=== PATIENT | male | born 1965 | race Caucasian/White ===

== ENCOUNTER 2019-10-06 11:33 | Emergency (ER) | payer BC, OTHER ==
[2019-10-06 11:42] VITALS: BP 126/78; PULSE 90; TEMP 98; BMI 25.0
--- NOTE | 2019-10-06 12:01 | PDOC ---
History of Present Illness - General Chief Complaint: Back Pain Stated Complaint: BACK PAIN Time Seen by Provider: 10/06/19 11:47 History Source: Patient - History of Present Illness Occurred: reports: this morning Pain Location: reports: back Past History - Past Medical History Allergies/Adverse Reactions: Allergies Allergy/AdvReac Type Severity Reaction Status Date / Time No Known Drug Allergies Allergy Verified 10/06/19 11:42 Home Medications: Ambulatory Orders Amlodipine Besylate [Norvasc -] 5 mg PO DAILY 09/17/15 Anemia: No Asthma: No Cancer: No Cardiac Disorders: No CVA: No COPD: No CHF: No Dementia: No Diabetes: No GI Disorders: No Disorders: No HTN: Yes Hypercholesterolemia: Yes Liver Disease: No Seizures: No Thyroid Disease: No - Surgical History Abdominal Surgery: No Appendectomy: No Cardiac Surgery: No Cholecystectomy: No Lung Surgery: No Neurologic Surgery: No Orthopedic Surgery: Yes (HERNIATED DISC) - Psycho Social/Smoking Cessation Hx Smoking History: Former smoker Have you smoked in the past 12 months: No Number of Cigarettes Smoked Daily: 10 Information on smoking cessation initiated: No 'Breaking Loose' booklet given: 07/15/13 Hx Alcohol Use: No Drug/Substance Use Hx: No Substance Use Type: Alcohol Hx Substance Use Treatment: No Review of Systems - Review of Systems Musculoskeletal: Yes: Back Pain Neurological: No: Numbness, Tingling, Weakness *Physical Exam - Vital Signs Last Vital Signs Temp Pulse Resp BP Pulse Ox 98 F 90 18 126/78 99 10/06/19 11:40 10/06/19 11:40 10/06/19 11:40 10/06/19 11:40 10/06/19 11:40 - Physical Exam General Appearance: Yes: Appropriately Dressed. No: Apparent Distress HEENT: positive: Normal Voice Neck: positive: Supple Respiratory/Chest: negative: Respiratory Distress Musculoskeletal: positive: Vertebral Tenderness (to L lower back). negative: CVA Tenderness Integumentary: positive: Dry, Warm Neurologic: positive: Fully Oriented, Alert, Normal Mood/Affect, Motor Strength 5/5 Medical Decision Making - Medical Decision Making 10/06/19 11:59 54-year-old male reports history of herniated disk to LS spine that he had surgery for remotely, here with L lower non-radiating back pain that started while heavy lifting at work today. No acute sensory changes, lower extremity weakness ,bowel or bladder incontinence or saddle anesthesia. Able to ambulate. Did not take anything for pain. see exam M/l back strain No red flags Declined pain meds here Dc w/ OTC meds prn pain Discharge - Discharge Information Problems reviewed: Yes Clinical Impression/Diagnosis: Back strain Qualifiers: Encounter type: initial encounter Qualified Code(s): S39.012A - Strain of muscle, fascia and tendon of lower back, initial encounter Condition: Good Disposition: HOME - Follow up/Referral - Patient Discharge Instructions Patient Printed Discharge Instructions: Low Back Pain - Post Discharge Activity Work/Back to School Note: Back to Work
== END 2019-10-06 12:10 | disposition home or self-care (01) ==
LOC: JERFT 11:33
DX: S39.012A Strain of muscle, fascia and tendon of lower back, initial encounter (principal); X50.9XXA Other and unspecified overexertion or strenuous movements or postures, initial encounter; Y93.89 Activity, other specified; Y92.512 Supermarket, store or market as the place of occurrence of the external cause; Y99.0 Civilian activity done for income or pay; I10 Essential (primary) hypertension; E78.00 Pure hypercholesterolemia, unspecified
CPT/HCPCS: 99282-25

== ENCOUNTER 2019-11-18 05:48 | Day surgery (SDC) | payer OTHER ==
[2019-11-17 11:43] VITALS: BMI 24.3
[2019-11-18] MEDS ORDERED: methylPREDNISolone ACET (DEPO) 80 MG/1 ML VIAL ONE (09:15)
[2019-11-18] MEDS ORDERED: MIDAZOLAM HCL 2 MG/2 ML SINGLE DOSE VIAL ONE ×2 (09:22)
[2019-11-18] MEDS ORDERED: methylPREDNISolone ACET (DEPO) 80 MG/1 ML VIAL IM ONE (09:29)
[2019-11-18] MEDS ORDERED: BUPIVACAINE HCL/PF 0.25% (2.5MG/ML) 10 ML VIAL IJ ONE (09:29)
[2019-11-18 10:18] VITALS: TEMP 98.1
--- NOTE | 2019-11-18 11:30 | OP ---
DATE OF OPERATION: 11/18/2019 PREOPERATIVE DIAGNOSES: 1. Left L4-5 herniated disk with left L4-5 radiculopathy. 2. History of right L5-S1 herniated disk, status post microdiskectomy. ATTENDING SURGEON: Rigo Gilliland MD ANESTHESIA: Local with IV sedation. ELECTRONICS TESTER: Mady Magana CRNA INDICATION: Patient is a 54-year-old male with a history of right L5-S1 laminectomy and diskectomy several years earlier. He developed a new left-sided herniated disk at L4-5. Because of the intractable symptoms and failure of conservative treatment he is here for the 1st epidural steroid injection. Risks of the procedure include but are not limited to bleeding, infection, spinal headache and neurological injury. The patient understands indication for the procedure, procedure in detail, risks and benefits and alternatives for the treatment of his lumbar condition and wished to proceed. No guarantees are given for a favorable outcome. PROCEDURE IN DETAIL: After patient was taken to the operating room he was placed in the prone position with a pillow under his hips. Lumbar region was cleaned with alcohol and prepped with Betadine. Skin wheal raised with 5 mL of 1% Xylocaine. A 22-gauge spinal needle was inserted under AP and lateral fluoroscopic guidance from a left-sided approach to L4-5. [id number] technique was utilized. There was no CSF or blood backflow. Depo-Medrol 80 mg and 1 mL of 0.25% Marcaine was injected. The needle was withdrawn after which a Band-Aid was applied. The patient tolerated the procedure well, was turned back into the supine position, moving his bilateral extremities well. He did not complain of headache. RIGO GILLILAND M.D. [id number]
[2019-11-18 11:50] VITALS: BP 120/80; PULSE 79
[2019-11-18] MEDS ORDERED: ONDANSETRON 4 MG/2 ML VIAL IVPUSH PRN (12:14)
[2019-11-18] MEDS ORDERED: ACETAMINOPHEN 325 MG TABLET (FP) PO PRN (12:14)
[2019-11-18] MEDS ORDERED: oxyCODONE HCL 5 MG TABLET PO PRN (12:14)
[2019-11-18] MEDS ORDERED: LACTATED RINGERS SOLUTION 1,000 ML IV SCH (12:15)
== END 2019-11-18 10:45 | disposition home or self-care (01) ==
LOC: JASU-SURG 05:48
PROVIDERS: ATTEND Neurological Surgery
PROC: 3E0R3BZ Introduction of Anesthetic Agent into Spinal Canal, Percutaneous Approach (ICD-10-PCS; 2019-11-18)
PROC: B01BYZZ Fluoroscopy of Spinal Cord using Other Contrast (ICD-10-PCS; 2019-11-18)
PROC: 3E0R33Z Introduction of Anti-inflammatory into Spinal Canal, Percutaneous Approach (ICD-10-PCS; principal; 2019-11-18 09:21)
DX: M51.16 Intervertebral disc disorders with radiculopathy, lumbar region (principal)
CPT/HCPCS: 76000-TC-FY

== ENCOUNTER 2020-08-17 04:56 | Day surgery (SDC) | payer OTHER ==
[2020-08-01 19:25] VITALS: BMI 24.7
--- OUTSIDE RECORDS SUMMARY | 2020-08-17 04:58 | XMS ---
:1965 Author Organization [facility] Support Name Relationship Address Phone [employer] Unavailable [address] [place] [address] KATHRYN MAURICE [address] [facility] [address] [place] [address] Re-disclosure Warning The records that you are about to access may contain information from federally- assisted alcohol or drug abuse programs. If such information is present, then the following federally mandated warning applies: This information has been disclosed to you from records protected by federal confidentiality rules (42 CFR part 2). The federal rules prohibit you from making any further disclosure of this information unless further disclosure is expressly permitted by the written consent of the person to whom it pertains or as otherwise permitted by 42 CFR part 2. A general authorization for the release of medical or other information is NOT sufficient for this purpose. The Federal rules restrict any use of the information to criminally investigate or prosecute any alcohol or drug abuse patient.The records that you are about to access may contain highly sensitive health information, the redisclosure of which is protected by Article 27-F of the [facility] Public Health law. If you continue you may haveaccess to information: Regarding HIV / AIDS; Provided by facilities licensed or operated by the [facility] Office of Mental Health; or Provided by the [facility] Office for People With Developmental Disabilities. If such information is present, then the following [facility] mandated warning applies: This information has been disclosed to you from confidential records which are protected by state law. State law prohibits you from making any further disclosure of this information without the specific written consent of the person to whom it pertains, or as otherwise permitted by law. Any unauthorized further disclosure in violation of state law may result in a fine or shelter sentence or both. A general authorization for the release of medical or other information is NOT sufficient authorization for further disclosure. Insurance Providers Payer name Policy type Policy ID Covered Covered constitution party's Policy P dimas / Coverage constitution party ID relationship to Yancey Inf ormation type yancey ROSARIO [id number] SP [id number] NATHALY [id number] SP [id number] [employer] [id number] 01 ROSARIO [id number] SP [id number] [id number] BC OUT OF [id number] SP [id number] [facility] PPO [id number] SP [id number] PENDING WC/NF [id number] SP [id number] ONLY SELF PAY SP INSURANCE Results ID Date Data Source [id number] 08/12/2020 03:05:00 PM EDT [facility] Name Value Range Interpretation Description Data Sup porting Code Source(s) Document(s ) SARS [facility] coronavirus 2 RNA This lab was ordered by [facility] and reported by [facility]. ID Date Data Source [id number] 07/28/2020 03:13:00 PM EDT [facility] Name Value Range Interpretation Description Data Sup porting Code Source(s) Document(s ) SARS [facility] coronavirus 2 RNA This lab was ordered by [facility] and reported by [facility]. ID Date Data Source [id number] 02/24/2020 11:50:00 AM EDT [facility] Name Value Range Interpretation Description Data Sup porting Code Source(s) Document(s ) SARS [facility] CORONAVIRUS 2 RNA [facility] and reported by [facility]. Procedure Social History Code Duration Value Status Description Data Source(s ) Smoking Unknown if ever completed Unknown if ever Becky Cabezas smoked [facility]
[2020-08-17 06:26] VITALS: TEMP 98
[2020-08-17] MEDS ORDERED: methylPREDNISolone ACET (DEPO) 80 MG/1 ML VIAL ONE (07:19)
[2020-08-17] MEDS ORDERED: BUPIVACAINE HCL/PF 0.25% (2.5MG/ML) 10 ML VIAL ONE (07:20)
[2020-08-17] MEDS ORDERED: MIDAZOLAM HCL 2 MG/2 ML SINGLE DOSE VIAL ONE (07:46)
[2020-08-17] MEDS ORDERED: PROPOFOL 20 ML ONE (07:46)
[2020-08-17] MEDS ORDERED: methylPREDNISolone ACET (DEPO) 80 MG/1 ML VIAL IM ONE (08:00)
[2020-08-17] MEDS ORDERED: BUPIVACAINE HCL/PF 2.5 MG/ML - 30 ML VIAL IJ ONE (08:00)
[2020-08-17] MEDS ORDERED: LIDOCAINE HCL 1% PRESERVATIVE FREE - 30ML VIAL IJ ONE (08:00)
[2020-08-17 08:24] VITALS: BP 109/71; PULSE 76
--- NOTE | 2020-08-17 11:21 | OP ---
DATE OF OPERATION: 08/17/2020 PREOPERATIVE DIAGNOSIS: Lumbar disk herniation with lower back pain and lumbar radiculopathy. POSTOPERATIVE DIAGNOSIS: Lumbar disk herniation with lower back pain and lumbar radiculopathy. ATTENDING SURGEON: Rigo Gilliland MD PROCEDURE: 1. Left L4-5 epidural steroid injection. 2. Intraoperative fluoroscopy. ANESTHESIA: Local with IV sedation. ANESTHESIOLOGIST: Joleen Mcclain MD INDICATION: Patient is a 55-year-old male who has previously undergone right L5-S1 laminectomy previously with recurrent back pain and left-sided radiculopathy. Because of the intractable symptoms and failure of conservative treatment he is here for the first epidural steroid injection. Risks of procedure include but are not limited to bleeding, infection, spinal headache and neurologic injury. The patient understands the indications for the procedure, procedure in detail, risks and benefits and alternatives for treatment of his lumbar condition and wishes to proceed. No guarantees were given for a favorable outcome PROCEDURE IN DETAIL: After the patient was taken to the operating room, he was placed in the prone position with a pillow under his hips. Lumbar region was cleaned with alcohol and prepared with Betadine. Skin wheal was raised with 5 mL of 1% Xylocaine. A 22-gauge spinal needle was inserted under AP and lateral fluoroscopic guidance from a left-sided approach at L4-5. There was no CSF or blood backflow. Depo-Medrol 80 mg and 1 mL of 0.25% Marcaine were injected. The needle was withdrawn. Sterile bandage was applied. The patient tolerated the procedure well, was turned back to supine position, moving bilateral lower extremities well. He did not complain of headache. RIGO GILLILAND M.D. [id number]
== END 2020-08-17 09:10 | disposition home or self-care (01) ==
LOC: JASU-SURG 04:56
PROVIDERS: ATTEND Neurological Surgery
PROC: 3E0R33Z Introduction of Anti-inflammatory into Spinal Canal, Percutaneous Approach (ICD-10-PCS; 2020-08-17)
PROC: B01BZZZ Fluoroscopy of Spinal Cord (ICD-10-PCS; 2020-08-17)
PROC: 3E0R3BZ Introduction of Anesthetic Agent into Spinal Canal, Percutaneous Approach (ICD-10-PCS; principal; 2020-08-17 07:30)
DX: M51.16 Intervertebral disc disorders with radiculopathy, lumbar region (principal); M54.5 Low back pain
CPT/HCPCS: 76000-TC-FY

== ENCOUNTER 2021-03-01 04:15 | Inpatient (IN) | payer BC ==
[2021-02-27 11:18] VITALS: BMI 24.1
[2021-03-01] MEDS ORDERED: THROMBIN (BOVINE) 5,000 UNIT VIAL TP ONE ×3 (07:49→11:40)
[2021-03-01] MEDS ORDERED: PROPOFOL 20 ML ONE ×6 (10:18→10:42)
[2021-03-01] MEDS ORDERED: ROCURONIUM BROMIDE 100 MG/10 ML VIAL ONE (10:19)
[2021-03-01] MEDS ORDERED: MIDAZOLAM HCL 2 MG/2 ML SINGLE DOSE VIAL ONE (10:19)
[2021-03-01] MEDS ORDERED: SUCCINYLCHOLINE CHLORIDE 200 MG/10 ML SYRINGE ONE ×2 (10:19→10:42)
[2021-03-01] MEDS ORDERED: LIDOCAINE HCL/PF 2% SDV 5ML VIAL ONE (10:41)
[2021-03-01] MEDS ORDERED: LIDOCAINE HCL 2% JELLY (5 ML/TUBE) ONE (10:41)
[2021-03-01] MEDS ORDERED: ROCURONIUM BROMIDE 50 MG/5 ML SYRINGE ONE (10:43)
[2021-03-01] MEDS ORDERED: ceFAZolin SODIUM 1 GM VIAL IVPB ONE (11:05)
[2021-03-01] MEDS ORDERED: ceFAZolin SODIUM 1 GM VIAL ONE ×2 (11:22→18:17)
[2021-03-01] MEDS ORDERED: DEXAMETHASONE SOD PHOSPHATE 4 MG/1 ML VIAL ONE (11:34)
[2021-03-01] MEDS ORDERED: ONDANSETRON 4 MG/2 ML VIAL ONE (11:34)
[2021-03-01] MEDS ORDERED: BACITRACIN 50,000 UNITS VIAL TP ONE (11:40)
[2021-03-01] MEDS ORDERED: GELATIN SPONGE,ABSORBABLE 1 GM PACKET TP ONE (11:40)
[2021-03-01] MEDS ORDERED: methylPREDNISolone ACET (DEPO) 80 MG/1 ML VIAL ONE (12:16)
[2021-03-01] MEDS ORDERED: methylPREDNISolone ACET (DEPO) 80 MG/1 ML VIAL IJ ONE (12:20)
[2021-03-01] MEDS ORDERED: GLYCOPYRROLATE 0.2 MG/1 ML VIAL ONE (12:28)
[2021-03-01] MEDS ORDERED: NEOSTIGMINE METHYLSULFATE 0.5 MG/ML - 10 ML MDV ONE ×2 (12:28→12:29)
[2021-03-01] MEDS ORDERED: BACITRACIN 15 GM TUBE TOPICAL OINTMENT ONE (12:33)
[2021-03-01] MEDS ORDERED: ONDANSETRON 4 MG/2 ML VIAL IVPUSH PRN (12:43)
[2021-03-01] MEDS ORDERED: D5-1/2NS+20 MEQ KCL - 20 MEQ/1,000 ML INFUS.BAG IV SCH (12:45)
[2021-03-01] MEDS ORDERED: HYDROmorphone HCl 2 MG/ML VIAL ONE (12:54)
[2021-03-01] MEDS ORDERED: ACETAMINOPHEN INJECTION 100 ML IVPB ONE (12:54)
[2021-03-01] MEDS ORDERED: PROMETHAZINE HCL 25 MG/1 ML VIAL IVPUSH PRN (12:56)
[2021-03-01] MEDS ORDERED: HYDROmorphone HCL CARPU-JECT 2 MG/1 ML DISP.SYRIN IVPB PRN (12:56)
[2021-03-01] MEDS ORDERED: ACETAMINOPHEN 1000 MG/100 ML VIAL (NON FORMULARY) IVPB PRN (12:59)
[2021-03-01] MEDS ORDERED: LACTATED RINGERS SOLUTION 1,000 ML IV SCH (13:00)
[2021-03-01] MEDS ORDERED: DEXAMETHASONE SOD PHOSPHATE 4 MG/1 ML VIAL IVPUSH ONE (13:17)
[2021-03-01] MEDS: diazePAM 5 MG TABLET PO SCH ×2 (13:58→21:35)
[2021-03-01] MEDS: GABAPENTIN 300 MG CAPSULE PO SCH ×2 (15:00→21:35)
[2021-03-01] MEDS ORDERED: HYDROmorphone HCl 2 MG/ML VIAL IVPB PRN (15:10)
[2021-03-01] MEDS: CEFAZOLIN 1 GM in DEXTROSE 5%-WATER - 50 ML IVPB SCH (18:20)
[2021-03-01] MEDS: DOCUSATE SODIUM 100 MG CAPSULE (FP) PO SCH ×2 (18:49→21:35)
[2021-03-01] MEDS: oxyCODONE HCL 5 MG TABLET PO PRN (21:35)
[2021-03-01] MEDS ORDERED: amLODIPine BESYLATE 5 MG TABLET (FP) PO SCH (22:00)
[2021-03-01] MEDS ORDERED: ROSUVASTATIN CA 5 MG TABLET (FP) PO SCH (22:00)
[2021-03-02] MEDS ORDERED: DEXTROSE 5%-WATER - 50 ML IVPB ONE ×2 (03:43→09:07)
[2021-03-02] MEDS ORDERED: ceFAZolin SODIUM 1 GM VIAL ONE ×2 (03:43→09:07)
[2021-03-02] MEDS: CEFAZOLIN 1 GM in DEXTROSE 5%-WATER - 50 ML IVPB SCH ×2 (03:46→09:59)
[2021-03-02] MEDS: diazePAM 5 MG TABLET PO SCH (05:28)
[2021-03-02] MEDS: DOCUSATE SODIUM 100 MG CAPSULE (FP) PO SCH (06:09)
[2021-03-02] MEDS: oxyCODONE HCL 5 MG TABLET PO PRN (06:10)
[2021-03-02] MEDS: GABAPENTIN 300 MG CAPSULE PO SCH (06:10)
[2021-03-02 09:36] VITALS: BP 114/69; PULSE 96; TEMP 98.2
[2021-03-02] MEDS ORDERED: MULTIVITAMINS (DAILY MVI) TABLET (FP) PO SCH (10:00)
== END 2021-03-02 14:28 | disposition home or self-care (01) | DRG 520 ==
LOC: J2C 04:15 → J8W 18:48
PROVIDERS: ADMIT Neurological Surgery; ATTEND Neurological Surgery
PROC: 00NY0ZZ Release Lumbar Spinal Cord, Open Approach (ICD-10-PCS; 2021-03-01)
PROC: B01BZZZ Fluoroscopy of Spinal Cord (ICD-10-PCS; 2021-03-01)
PROC: 0ST20ZZ Resection of Lumbar Vertebral Disc, Open Approach (ICD-10-PCS; principal; 2021-03-01 10:45)
DX: M51.16 Intervertebral disc disorders with radiculopathy, lumbar region (principal)
CPT/HCPCS: 76000-TC-FY; 86850; 86900; 86901; 88304-TC; 94010; 94760; 97116-GP; 97161-GP; J0131